=== PATIENT | female | born 1945 | race Caucasian/White ===

== ENCOUNTER → 2020-02-21 | Day surgery (SDC) | payer MEDICARE, OTHER ==
[2020-02-16 13:00] LABS: BASOPHILS % 0.7 % (0.0-1.0); EOSINOPHILS # (AUTO) 0.1 (0.0-0.4); EOSINOPHILS % 2.3 % (0.0-6.0); HEMATOCRIT 35.9 % (34.2-44.1); HEMOGLOBIN 11.2 g/dL (12.0-16.0); LYMPHOCYTES % 22.4 % (18.0-39.1); MEAN CORPUSCULAR HEMOGLOBIN 29.6 pg (28-32); MEAN CORPUSCULAR HGB CONC 31.2 g/dL (31-35); MONOCYTES # (AUTO) 0.5 (0.2-0.8); MONOCYTES % 10.5 % (4.4-11.3); NEUTROPHILS # (AUTO) 2.7 (2.1-6.9); NEUTROPHILS % 63.2 % (38.7-80.0); PLATELET COUNT 159 x10e3/uL (140-360); RED BLOOD COUNT 3.78 x10e6/uL (3.6-5.1)
[2020-02-16 13:17] LABS: ALBUMIN 3.3 g/dL (3.5-5.0); ALBUMIN/GLOBULIN RATIO 0.9 (0.8-2.0); ANION GAP 16.8 mmol/L (8-16); CALCIUM 9.2 mg/dL (8.4-10.2); CREATININE, SERUM 1.6 mg/dL (0.57-1.11); POTASSIUM 3.8 mmol/L (3.5-5.1)
[~2020-02-21] VITALS: Ht 165.1 cm; Wt 99.3 kg
[2020-02-21] VITALS (11 sets, daily range): BP systolic 130–182; BP diastolic 70–87
[~2020-02-21] MED LIST: ALLOPURINOL300 MG PO; ALPRAZOLAM 0.5 MG TAB ONE; ASPIRIN 325 MG TAB ONE; ATORVASTATIN CA20 MG PO; DIPHENHYDRAMINE HCL 25 MG CAP ONE; ELIQUIS2.5 MG PO; FENTANYL CITRATE/PF 100MCG/2 ML INJ ONE; FUROSEMIDE40 MG PO; HEPARIN SOD (PORCINE) 1000 UNIT/ML 30ML ONE; HEPARIN SOD/SOD CHLORIDE 2,000 ML ONE; HYDROCODONE/APAP 5MG-325MG TAB ONE; IOPAMIDOL 300MG/ML 100 ML INFUS..BTL IV ONE; LEVOTHYROXINE75 MCG PO; LIDOCAINE HCL 2% LOCAL 20 ML VIAL ONE; MESTINON60 MG PO; METOPROLOL SUCC25 MG PO; MIDAZOLAM HCL 2 MG/2 ML VIAL ONE; MYCOPHENOLATE250 MG PO; NITROGLYCERIN/D5W 200 MCG/ML 250 ML ONE; PACERONE100 MG PO; PANTOPRAZOLE SO40 MG PO; POTASSIUM CHLO20 ME1 PO; PRASUGREL 10 MG TAB ONE; SODIUM CHLORIDE 0.9% 1000ML 1,000 ML ONE; VITAMIN B3 PO
--- NOTE | 2020-02-21 08:45 | NUR ---
0845am CHANGE MANAGEMENT ADMINISTRATOR RECIEVING NOTE: Procedure type Veinous angiogram Dr Toth Received pt to rm #[id number],Identiferx2. Report from FRANTZ [email or web address], Back to baseline orientation. Respiration shallow and regular on room air. V/S stable Monitor stable Atrial fib.No Fix Dr Toth. Extremities equal and strong. Pedal pulses PT/DP X4 1+/1+/1+/1+ Cap fill brisk < 3 sec. Procedural access Bilateral femoral sheaths intact .No gross issues pain,pallor,pressure or dysrhythmia abnormalities from baseline. Skin warm and dry integrity appears D/I. IV 20g to left hand at 100cchr ,presents healthy w/o s/s of infiltration or complaint. Abdomen soft and supple. pt offered toileting, denies need to urinate or defecate. Personal affects with patient under stretcher No Family at bedside will call Glenda at bedside. Sheath pull at 858am. Akira cathode ray tube assembler RN will pull ds/rn octavio/rn
--- NOTE | 2020-02-21 08:58 | NUR ---
0858a Akira RN here for sheath pulls Left and Right, Pressure held 6mins each 4x4 dressings with Tegaderm asymptomatic. No gross issues pain,pallor,pressure or dysrhythmia. ppx4 1+/1+/1+/1+. medicated for back pain Narco requested.asked Dr Navneet cunningham/rn
--- NOTE | 2020-02-21 09:40 | NUR ---
0940 c/o back pain sheaths out medicated Narco 325/[address] Toth order. Called [facility] for 115am pickup No voice mail. Left message on Mary Anne Daughter voice mail about dc time. No gross issues pain,pallor, pressure or dysrhythmia. octavio/yisel
--- NOTE | 2020-02-21 10:37 | Operative Report ---
DATE OF PROCEDURE: 02/21/2020 SURGEON: Jose Toth MD INDICATION: Chronic venous insufficiency with compression of the iliac vein. PROCEDURES PERFORMED: 1. Bilateral lower extremity venograms. 2. Catheter placement in the inferior vena cava. 3. Intravascular ultrasound of bilateral iliac veins. 4. Stent placement to the left common iliac vein. COMPLICATIONS: None. RECOMMENDATIONS: Apixaban and clopidogrel for one month, followed by apixaban and aspirin lifelong. DESCRIPTION OF PROCEDURE: Access was obtained in bilateral femoral vein. Using ultrasound guidance, an 8-[place] sheath was placed. Venogram demonstrated no thrombus with normal caliber of iliac veins and inferior vena cava. Wires were advanced into the inferior vena cava. Intravascular ultrasounds were performed, 54% stenosis of the left common iliac vein was noted. Remaining veins were normal. The left-sided sheath was upsized to 10-[place]. The patient received 10,000 units of intravenous heparin for anticoagulation. A single 16 x 80 mm Venovo stent was deployed, post dilated with a 16 mm balloon. Final venogram demonstrated an excellent flow. No complications. Sheath removed under manual pressure. The patient discharged home the same day. Jose Toth MD [facility]/MODL /[id number]
--- NOTE | 2020-02-21 11:15 | NUR ---
[facility] Pt meets DC criteria. Bilateral femoral sites assessed for s/s of complication and presence of hematoma. Skin warm, dry, no discolor, and pulses present. IV removed from left hand. Distal tip appears intact. VS WNL. Pt denies pain, sob, or need at this time. Family here grandson explained discharge paperwork and follow up instructions he and pt verbalized understanding. Pt to wheelchair and transported to front of hospital. Transferred to private vehicle under own strength w/o incident with DC paperwork in hand. - octavio/yisel
== END | disposition home or self-care (01) ==
LOC: CATH LAB 06:18 → EDSTATUS 07:30
PROVIDERS: ATTEND Internal Medicine Interventional Cardiology
DX: I87.1 Compression of vein (principal); I87.2 Venous insufficiency (chronic) (peripheral); I82.523 Chronic embolism and thrombosis of iliac vein, bilateral; I25.2 Old myocardial infarction; I10 Essential (primary) hypertension; E78.00 Pure hypercholesterolemia, unspecified; E07.9 Disorder of thyroid, unspecified; Z88.0 Allergy status to penicillin; Z01.812 Encounter for preprocedural laboratory examination; Z11.59 Encounter for screening for other viral diseases; Z68.37 Body mass index [BMI] 37.0-37.9, adult; Z82.49 Family history of ischemic heart disease and other diseases of the circulatory system; Z82.3 Family history of stroke
CPT/HCPCS: 36415; 37238; 76937; 80053; 85025; 87635; C1753; C1766; C1769 ×2; C1876; J1644; J2001; J2250; J3010; J7030; Q9967; 37252; 75716; 99152; 99153